=== PATIENT | male | born 1960 | race Caucasian/White ===

== ENCOUNTER 2020-12-03 13:23 | Emergency (ER) | payer BC, SELFPAY ==
[2020-12-03 13:24] VITALS: BP 189/102; PULSE 61; RESP 16; TEMP 36.6; O2SAT 98; BMI 37.7
--- NOTE | 2020-12-03 13:47 | CT_ITS ---
EXAM: CT ABDOMEN AND PELVIS WITHOUT INTRAVENOUS CONTRAST CLINICAL INDICATION: Kidney Stone TECHNIQUE: Helically acquired images were obtained of the abdomen and pelvis without intravenous contrast. This CT exam was performed using one or more of the following dose reduction techniques: automated exposure control, adjustment of the mA and/or kV according to patient size, and/or use of iterative reconstruction technique. This report was created using [employer] report generation technology. COMPARISON: None. FINDINGS: LOWER THORAX: Unremarkable. Lung bases are clear. No cardiomegaly. No significant pericardial effusion. ABDOMEN: LIVER: 2.3 cm hypodense cyst near the anterior surface of the left hepatic lobe. It has a CT number of -1.6 [place] units. 9 mm central hypodensity in the liver (series 2, image 30). It is too small to characterize as cyst. GALLBLADDER AND BILE DUCTS: Unremarkable. No calcified gallstones. No gallbladder distention or wall edema. No intra- or extrahepatic biliary ductal dilation. PANCREAS: Unremarkable. No focal cystic mass. SPLEEN: Unremarkable. Normal size without focal cystic or solid mass. ADRENALS: Unremarkable. No nodules. KIDNEYS AND URETERS: Unremarkable. Normal renal size and position. No hydronephrosis. STOMACH AND BOWEL: Few diverticula in the sigmoid colon without diverticulitis. No stomach or bowel distention. PELVIS: APPENDIX: Normal. BLADDER: Unremarkable. REPRODUCTIVE: Unremarkable as visualized. No mass. ABDOMEN and PELVIS: INTRAPERITONEAL SPACE: Unremarkable. No ascites or other fluid collection. No free air. BONES/JOINTS: Pronounced L2-L3 disc space height narrowing with degenerative vacuum phenomenon and prominent posterior marginal spurs. This is causing moderately pronounced central canal stenosis with an AP canal diameter of 5.4 mm. Pronounced central canal stenosis at L3-L4 disc space level with an AP canal diameter of 6 mm. Moderate central canal stenosis at L4-L5 disc space level with an AP canal diameter of 7.3 mm. Pronounced bilateral L4-L5 degenerative facet hypertrophy. No suspicious lytic or blastic abnormality. SOFT TISSUES: Unremarkable. No discrete abdominal or pelvic wall hernia. VASCULATURE: Unremarkable. Abdominal aorta is non-dilated. LYMPH NODES: Unremarkable. No enlarged lymph nodes. CT/Abdomen/Pelvis without Cont IMPRESSION: 1. No CT evidence of stones in the kidneys, ureters and urinary bladder. 2. Few sigmoid diverticulosis without diverticulitis. 3. No suspicious acute abnormality in the abdomen and pelvis. 4. Pronounced central canal stenosis at L2-L3 disc space level with an AP canal diameter of 5.4 mm. 5. Pronounced central canal stenosis at L3-L4 disc space level with an AP canal diameter of 6 mm. Moderate central canal stenosis at L4-L5 disc space level with an AP canal diameter is 7.3 mm. Electronically Signed: Kel Rivers MD at 14:39 EDT , Service support ,
--- NOTE | 2020-12-03 13:48 | ED.DCSUM_ITS ---
History of Present Illness Chief Complaint: Flank Pain Informant: Patient - Abdominal Pain/Flank Pain Onset: Hours - 2 Context: Sudden Onset Timing: Continuous, Waxes and wanes Quality: Aching Location: Left Flank - w/ radiation into left hemiscrotum; did not start in scrotum/testicle Current Severity: Severe Maximum Severity: Severe Worsened by: Nothing Relieved by: Nothing - Nausea/Vomiting/Emesis GI Symptom: Nausea, Vomiting Quality: Nonbilious - Diarrhea/Melena/Hematochezia GI Symptom: Negative for: Diarrhea, Melena, Hematochezia Associated Symptoms: Urgency - Feels like needs to urinate but not able when he tries. Negative for: Dysuria, Frequency, Hematuria Narrative: Never had this before. Pain started suddenly, making him sweat it was so severe, started in his left low back. Now radiating around to his left lower quadrant and testicle. Prior similar symptoms: No Recent Illness/Hospitalization: No Past Medical History - Allergies and Home Meds Allergies/Adverse Reactions: Allergies Penicillins Allergy (Verified 12/03/20 13:28) Hives Sulfa (Sulfonamide Antibiotics) Allergy (Verified 12/03/20 13:28) Hives Surgical History: herniorrhaphy - Right inguinal, - - Right shoulder rotator cuff repair Smoking Status: Former smoker Review of Systems General: Reports: Sweats. Denies: Chills, Fever Eyes: Denies: Visual changes - bilaterally, Diplopia ENT: Denies: Rhinorrhea, Sore throat Cardiovascular: Denies: Chest pain, Palpitations Respiratory: Denies: Dyspnea, Cough, Dyspnea on exertion Gastrointestinal: Reports: Abdominal pain, Nausea, Vomiting. Denies: Diarrhea, Melena, Hematochezia Genitourinary: Denies: Dysuria, Hematuria, Frequency Musculoskeletal: Reports: Back pain. Denies: Swelling, Extremity Pain Skin: Denies: Rash, Wounds Neurological: Denies: Headache, Weakness, Numbness Physical Exam Vital Signs/Narrative: Vital Signs Temp Pulse Resp BP Pulse Ox 12/03/20 13:24 97.8 F 61 16 189/102 H 98 Inital Vital Signs reviewed: Yes General: Well nourished, Well developed, Acute Distress - Pain Head: Normocephalic, Atraumatic Eyes: Perrl, EOMI ENT: Moist mucous membranes, No rhinorrhea Neck: Supple, Nontender Cardiovascular: Regular rate, Regular rhythm, No murmurs Respiratory: No distress, CTA bilaterally, Chest nontender Abdomen: Soft, Nontender, Nondistended, Normal bowel sounds Back: Nontender, Normal Inspection. Negative for: CVA tenderness Extremities: Nontender, No edema Skin: Normal color, No rash, Diaphoresis Neurological: Alert, Oriented x3, Cranial nerves II-XII grossly intact, Normal Strength, Normal Sensation, Normal Gait Psychological: Normal affect, Normal Mood Diagnostic/Tx/Re-eval Impressions Abdomen/Pelvis CT 12/03/20 13:47 IMPRESSION: 1. No CT evidence of stones in the kidneys, ureters and urinary bladder. 2. Few sigmoid diverticulosis without diverticulitis. 3. No suspicious acute abnormality in the abdomen and pelvis. 4. Pronounced central canal stenosis at L2-L3 disc space level with an AP canal diameter of 5.4 mm. 5. Pronounced central canal stenosis at L3-L4 disc space level with an AP canal diameter of 6 mm. Moderate central canal stenosis at L4-L5 disc space level with an AP canal diameter is 7.3 mm. Electronically Signed: Kel Rivers MD at 14:39 EDT , Service support , ADDENDUM: 12/03/20 1457 Impression #1 is incorrect. There is a recently passed 2 mm radiopaque calculus inside the left side of the urinary bladder. No stones in the left kidney and no left hydronephrosis. There is a prominent left extrarenal pelvis. There is also a 2 mm nonobstructing stone in the right lower renal pole. CONCLUSION: 1. 2 mm recently passed radiopaque calculus inside the left side of the posterior urinary bladder. 2. 2 mm nonobstructing calculus in the right lower renal pole. Electronically Signed: Kel Rivers MD at 14:50 EDT , Service support , Laboratory Results 12/03/20 12/03/20 12/03/20 13:35 13:35 14:30 WBC 6.9 RBC 4.90 Hgb 14.1 Hct 44.2 MCV 90.2 MCH 28.8 MCHC 31.9 L RDW Std Deviation 48.7 H RDW Coeff of [place] 14.8 H Plt Count 250 MPV 9.9 Immature Gran % (Auto) 0.400 Neut % (Auto) 70.7 H Lymph % (Auto) 19.7 Ramsey % (Auto) 7.4 Eos % (Auto) 1.7 Baso % (Auto) 0.1 Absolute Neuts (auto) 4.9 Absolute Lymphs (auto) 1.36 Nucleated RBC % 0 Sodium 138 Potassium 4.3 Chloride 104 Carbon Dioxide 32.0 Anion Gap 2 L BUN 17 Creatinine 1.65 H Estim Creat Clear Calc 44.91 Est GFR (MDRD) Af Amer 55 L Est GFR (MDRD) Non-Af 45 L BUN/Creatinine Ratio 10.3 Glucose 115 H Calcium 9.3 Urine Color Yellow Urine Clarity Clear Urine pH 6.0 Ur Specific Aragon 1.025 Urine Protein Negative Urine Glucose (UA) Normal Urine Ketones Negative Urine Occult Blood 10 H Urine Nitrite Negative Urine Bilirubin Negative Urine Urobilinogen Normal Ur Leukocyte Esterase Negative Urine RBC 0 SEEN Urine WBC 0 SEEN Ur Squamous Epith Cells 0-5 SEEN Urine Bacteria 0 SEEN Urine Mucus 0 SEEN - Medical Decision Making Patient presenting with classic kidney stone symptoms but initially CT was read as essentially negative. In looking at the films, patient appeared to have a UVJ versus small stone just passed into the bladder, discussed with the rad iologist and he is in agreement in addition to an asymptomatic nonobstructing right renal stone that is also small. Discussed all this with the patient, initially after Zofran and morphine he was still in pain, but after a small dose of Toradol 15 mg, he is pain-free and doing well. He will be prescribed Flomax, Percocet, Zofran all to be used as needed, if his pain does not recur because the stone is indeed in his bladder, he does not need to take any of it including the Flomax. Discussed with him, he is comfortable with this plan and discussed reasons to return. ED Disposition - Plan for ED Patient: Disposition: Home or Assisted Living Diagnosis: Ureterolithiasis, Renal colic on left side Instructions: ED Kidney Stone w/ Colic Prescriptions: Tamsulosin HCl [Flomax] 0.4 mg PO DAILY #7 capsule Transmission Status: Pending to [facility]/pharmacy #[id number] Oxycodone HCl/Acetaminophen [Percocet 5/325] 1 tablet PO Q6H PRN PRN 3 Days #10 tablet PRN Reason: Pain Transmission Status: Received by [facility][id number] Ondansetron [Zofran Odt] 8 mg PO Q8H PRN PRN #10 tablet PRN Reason: Nausea Transmission Status: Pending to [facility][id number] Referrals: Johann Snyder MD [Primary Care Provider] - 1 Week if not improving
[2020-12-03] MEDS: Ondansetron 4 MG/2 ML Vial IV (13:54)
[2020-12-03] MEDS: Morphine 4 MG/ML Syringe IV (13:55)
[2020-12-03 14:06] LABS: Absolute Lymphocyte Count 1.36 X10^3/uL (0.83-4.51); Absolute Neutrophil Count 4.9 X10^3/uL (2.0-7.7); Basophil# 0.01 X10^3/uL; Basophil% 0.1 % (0-1); Eosinophil# 0.12 X10^3/uL; Eosinophils% 1.7 % (0-5); Hematocrit 44.2 % (40-54); Hemoglobin 14.1 g/dL (13.0-16.5); Lymphocyte # 1.36 X10^3/ul (4.0); Lymphocyte % 19.7 % (19-41); Mean Corp Hgb Conc 31.9 g/dL (32-36); Mean Corpuscular Hgb 28.8 pg (27.0-32.0); Mean Corpuscular Volume 90.2 fL (80-94); Mean Platelet Vol. 9.9 fl (6.2-12.0); Monocyte# 0.51 X10^3/uL; Monocyte% 7.4 % (0-10); NRBC Flagged by Analyzer 0 % (0-5); Neutrophil # 4.89 X10^3/uL (2.7-7.7); Neutrophil % 70.7 % (47-70); Platelet Count 250 K/mm3 (150-450); RBC Distribution Width CV 14.8 % (11.6-14.6); RBC Distribution Width SD 48.7 fl (35.1-43.9); White Blood Count 6.9 K/mm3 (4.4-11.0)
[2020-12-03 14:16] LABS: Anion Gap 2 (5-15); BUN 17 mg/dL (7-18); BUN/Creat Ratio 10.3 RATIO (10-20); Calcium,Total 9.3 mg/dL (8.5-10.1); Chloride 104 mmol/L (98-107); Creatinine, Serum 1.65 mg/dL (0.70-1.30); EST Glomerular Filtration Rate 45 mL/min (>60); Est Glom Filt Rate - Afr Amer 55 mL/min (>60); Estimated Creatinine Clearance 44.91 ml/min; Glucose 115 mg/dL (74-106); Potassium 4.3 mmol/L (3.5-5.1); Sodium Level 138 mmol/L (136-145)
[2020-12-03] MEDS: Ketorolac 15 MG/ML Vial IV (14:37)
[2020-12-03 14:39] LABS: Bacteria 0 SEEN /hpf (None Seen); Mucous, Urine 0 SEEN /hpf (<or=2+); Red Blood Cells-Urine 0 SEEN /hpf (0-5); White Blood Cells 0 SEEN /hpf (0-5)
[2020-12-03 14:51] LABS: Color, Urine Yellow (Yellow); Glucose, Dipstick Normal (Normal); Ketone-Dipstick Negative (Negative); Leukocyte Esterase-Dipstick Negative /ul (Negative); Nitrite-Dipstick Negative (Negative); Occult Blood-Urine 10 /ul (Negative); Protein-Dipstick Negative (Negative); Specific Gravity, Urine 1.025 (1.002-1.030); Urine Bilirubin Dipstick Negative (Negative); Urine Clarity Clear (Clear); Urine Urobilinogen Normal (Normal)
[2020-12-03 14:59] LABS: Squamous Epithelial Cells - UA 0-5 SEEN /hpf (0-5)
[2020-12-03 15:44] VITALS: BP 165/85; PULSE 59; RESP 18
== END 2020-12-03 15:45 | disposition home or self-care (01) ==
PROVIDERS: Emergency Provider Emergency Medicine; PCP Family Medicine Geriatric Medicine
DX: N20.2 Calculus of kidney with calculus of ureter (principal); Z87.891 Personal history of nicotine dependence
CPT/HCPCS: 74176; 80048; 81001; 85025; 96374; 96375; 99285; J7030; A4216; J2405